=== PATIENT | female | born 1975 | race Caucasian/White ===

== ENCOUNTER 2018-09-16 12:35 | Outpatient (CLI) | payer BC ==
--- NOTE | 2018-09-16 13:51 | RAD ---
CERVICAL SPINE FIVE VIEWS: Date: 09-16-18 FINDINGS: No fracture, dislocation, or soft tissue swelling. The C1-2 dens distance is normal. There may be guerline e minor disc space narrowing at C3-4, but this is borderline. The right oblique view is not turned as much as optimal but there appears to be some slight foraminal narrowing on the right at C4-5. C3-4 o n the right is difficult to assess confidently. IMPRESSION: 1. No acute findings. 2. Equivocal disc space narrowing at C3-4. 3. Minimal foraminal narrowing on the right at C4-5. Questionable narrowing at C3-4. If the patient h as any radicular symptoms in these areas, then MRI might be useful. If there is no radiculopathy, it may not be needed. POS: [facility]
== END 2018-09-16 12:36 | disposition home or self-care (01) ==
LOC: BURRAD 12:35
PROVIDERS: ATTEND Clinical Nurse Specialist Medical-Surgical
DX: M54.2 Cervicalgia (principal); M50.31 Other cervical disc degeneration, high cervical region; M48.02 Spinal stenosis, cervical region
CPT/HCPCS: 72050